=== PATIENT | female | born 1965 | race Caucasian/White ===

== ENCOUNTER 2019-01-04 23:51 | Emergency (ER) | payer OTHER ==
[~2019-01-04] VITALS: Ht 162.6 cm; Wt 82.5 kg
[2019-01-04 23:56] VITALS: Ht 162.6 cm; Wt 82.5 kg
[2019-01-05] MEDS ORDERED: ONDANSETRON 4 MG INJ IV STA (02:28)
[2019-01-05] MEDS ORDERED: morphine 4 MG/ML VIAL IV STA (02:28)
[2019-01-05] MEDS ORDERED: SOD CHLORIDE 0.9% 1,000 ML IV STA (02:28)
[2019-01-05] MEDS ORDERED: SULF1TAB31 PO (05:18)
[2019-01-05] MEDS ORDERED: TRAM50TA2 PO (05:18)
[2019-01-05] MEDS ORDERED: CEFTRIAXONE 1 GM/50 ML (PMX) 50 ML IVPB ONE (05:30)
[2019-01-05 07:29] VITALS: BP 135/78; PULSE 80; RESP 20
--- NOTE | 2019-01-08 17:41 | ERD ---
ER Documentation Chief Complaint Chief Complaint abdominal/back pain x 1 day HPI Is a 51 female complains of lower abdominal pain rating to her back for the past day. Pain is mild to moderate intensity with no exacerbating or alleviating factors. She says she has complained of mild urgency and frequency of urination. Denies fevers chills nausea vomiting. Denies any current complaints. ROS All systems reviewed and are negative except as per history of present illness. Medications Home Meds Active Scripts Tramadol HCl (Tramadol HCl) 50 Mg Tablet, 50 MG PO Q4 PRN for PAIN, #20 TAB Prov:SAL GAYTANRosalia 01/05/19 Sulfamethoxazole/Trimethoprim* (Bactrim Ds* Tablet) 1 Each Tablet, 1 TAB PO BID, #14 TAB Prov:SAL GAYTANRoslaia 01/05/19 Allergies Allergies: Coded Allergies: No Known Drug Allergies (Verified Allergy, Unknown, 01/04/19) PMhx/Soc History of Surgery: Yes (HYSTERECTOMY) Anesthesia Reaction: No Hx Cardiac Disorders: Yes (HTN) Hx Miscellaneous Medical Probl: Yes (GASTRITIS) Hx Alcohol Use: Yes (SOCIAL) Hx Substance Use: No Hx Tobacco Use: No Smoking Status: Never smoker Physical Exam Vitals Vital Signs Date Temp Pulse Resp B/P (MAP) Pulse Ox O2 O2 Flow FiO2 Time Delivery Rate 01/05/19 80 20 135/78 98 Room Air 07:29 (97) 01/05/19 99.7 99 20 140/88 98 Nasal 3.0 03:15 (105) Cannula 01/04/19 99.7 102 20 150/86 98 23:56 (107) Physical Exam Const: No acute distress Head: Atraumatic Eyes: Normal Conjunctiva ENT: Normal External Ears, Nose and Mouth. Neck: Full range of motion. No meningismus. Resp: Clear to auscultation bilaterally Cardio: Regular rate and rhythm, no murmurs Abd: Soft, non tender, non distended. Normal bowel sounds Skin: No petechiae or rashes Back: No midline or flank tenderness Ext: No cyanosis, or edema Neur: Awake and alert Psych: Normal Mood and Affect Result Diagram: 01/05/19 0240 01/05/19 0240 Results 24 hrs Laboratory Tests Test 01/05/19 02:40 White Blood Count 8.5 10^3/ul Red Blood Count 4.50 10^6/ul Hemoglobin 13.3 g/dl Hematocrit 40.1 % Mean Corpuscular Volume 89.1 fl Mean Corpuscular Hemoglobin 29.6 pg Mean Corpuscular Hemoglobin Concent 33.2 g/dl Red Cell Distribution Width 12.4 % Platelet Count 240 10^3/UL Mean Platelet Volume 11.2 fl Immature Granulocytes % 0.200 % Neutrophils % 50.0 % Lymphocytes % 39.3 % Monocytes % 9.2 % Eosinophils % 0.9 % Basophils % 0.4 % Nucleated Red Blood Cells % 0.0 /100WBC Immature Granulocytes # 0.020 10^3/ul Neutrophils # 4.3 10^3/ul Lymphocytes # 3.4 10^3/ul Monocytes # 0.8 10^3/ul Eosinophils # 0.1 10^3/ul Basophils # 0.0 10^3/ul Nucleated Red Blood Cells # 0.0 10^3/ul Urine Color YELLOW Urine Clarity SLIGHTLY CLOUDY Urine pH 5.0 Urine Specific [place] 1.021 Urine Ketones NEGATIVE mg/dL Urine Nitrite NEGATIVE mg/dL Urine Bilirubin NEGATIVE mg/dL Urine Urobilinogen 2+ mg/dL Urine Leukocyte Esterase NEGATIVE Zachariah/ul Urine Microscopic RBC 7 /HPF Urine Microscopic WBC 6 /HPF Urine Squamous Epithelial Cells FEW /HPF Urine Mucus FEW /HPF Urine Hemoglobin 2+ mg/dL Urine Glucose NEGATIVE mg/dL Urine Total Protein NEGATIVE mg/dl Sodium Level 143 mmol/L Potassium Level 3.7 mmol/L Chloride Level 107 mmol/L Carbon Dioxide Level 26 mmol/L Anion Gap 10 Blood Urea Nitrogen 10 mg/dl Creatinine 0.57 mg/dl Est Glomerular Filtrat Rate mL/min > 60 mL/min Glucose Level 105 mg/dl Calcium Level 9.0 mg/dl Total Bilirubin 0.5 mg/dl Direct Bilirubin 0.00 mg/dl Indirect Bilirubin 0.5 mg/dl Aspartate Amino Transf (AST/SGOT) 32 IU/L Alanine Aminotransferase (ALT/SGPT) 43 IU/L Alkaline Phosphatase 139 IU/L Total Protein 7.9 g/dl Albumin 4.2 g/dl Globulin 3.70 g/dl Albumin/Globulin Ratio 1.13 Lipase 133 U/L Current Medications Medications Dose Sig/Fara Start Time Status Last (Trade) Ordered Route PRN Stop Time Admin Dose Reason Admin Sodium 1,000 ml @ Q1H STAT 01/05/19 DC 01/05/19 Chloride 1,000 mls/hr IV 02:28 01/05/19 02:49 03:27 Morphine 4 mg ONCE STAT 01/05/19 DC 01/05/19 Sulfate IV 02:28 01/05/19 02:49 (morphine) 02:29 Ondansetron 4 mg ONCE STAT 01/05/19 DC 01/05/19 HCl (Zofran IV 02:28 01/05/19 02:48 Inj) 02:29 Ceftriaxone 50 ml @ ONCE ONCE 01/05/19 DC 01/05/19 Sodium 100 mls/hr IVPB 05:30 01/05/19 05:53 05:59 Procedures/MDM Medical decision make: 50 feet with evidence of a sending cystitis. Is been c linically stable. No intra-abdominal process on CT. Serial negative abdominal exams in the ER. Patient be discharged with antibiotics for UTI. Patient's gastrointestinal symptoms have stabilized while in the department. No evidence of severe dehydration, sepsis, or surgical abdomen. Extensive discussion with family and patient that occult disease cannot be ruled out. 8 hour recheck for repeat abdominal exam is planned. Departure Diagnosis: Primary Impression: Abdominal pain Abdominal location: unspecified location Qualified Codes: R10.9 - Unspecified abdominal pain Condition: Stable Patient Instructions: Abdominal Pain SAL GAYTAN January 08, 2019 17:41
== END 2019-01-05 07:52 | disposition home or self-care (01) ==
LOC: E/R 23:51
DX: R10.9 Unspecified abdominal pain (principal); I10 Essential (primary) hypertension
CPT/HCPCS: 36415; 74176; 80053; 81001; 83690; 85025; 87086; 96374; 96375; J0696; J2270; J2405; J7030; Z7502